=== PATIENT | male | born 1965 | race Caucasian/White ===

== ENCOUNTER 2017-06-21 16:26 | Inpatient (IN) | payer OTHER ==
[2017-06-21] MEDS ORDERED: Ketorolac INJ* 30 MG/ML 1 ML VIAL IV PUSH ONE (18:35)
[2017-06-21] MEDS ORDERED: NS 0.9% 1000 ML* 1,000 ML IV ONE (18:35)
--- NOTE | 2017-06-21 18:42 | ED ---
Abdominal Pain/Male - HPI Summary HPI Summary: 51M presents with lower abdominal pain since Sat. He was lifting things on Saturday. He denies any pain like this in the past. He denies any history of GI infections. He denies any n/v/d/c. He denies any hematuria, flank pain, dysuria, or fever. He has had his appendix removed. He states that pain is worst with movement. He states that he has no pain at rest. Ibuprofen helped the pain. Pain is greatest on the middle and radiates to side of lower abdomen. pain is sharp in nature. Pain is worst with bowel movement as causes increased pressure so pain increases. Seen by primary who was concerned for diverticulitis. - History of Current Complaint Chief Complaint: EDAbdOlafin Stated Complaint: LOWER ABD PAIN Time Seen by Provider: 06/21/17 18:24 Pain Intensity: 7 - Allergies/Home Medications Allergies/Adverse Reactions: Allergies Allergy/AdvReac Type Severity Reaction Status Date / Time No Known Allergies Allergy Verified 06/21/17 22:39 PMH/Surg Hx/FS Hx/Imm Hx Endocrine/Hematology History: Denies: Hx Diabetes, Hx Thyroid Disease Cardiovascular History: Denies: Hx Hypertension Respiratory History: Denies: Hx Asthma, Hx Chronic Obstructive Pulmonary Disease (COPD) GI History: Denies: Hx Ulcer Psychiatric History: Reports: Hx Depression - Surgical History Surgery Procedure, Year, and Place: appy Infectious Disease History: No Infectious Disease History: Denies: Hx Hepatitis, Hx Human Immunodeficiency Virus (HIV), Traveled Outside the in Last 30 Days - Family History Known Family History: Positive: Other - no GI - Social History Alcohol Use: Occasionally Substance Use Type: Reports: None Smoking Status (MU): Never Smoked Tobacco Review of Systems Negative: Fever Negative: Chest Pain Negative: Shortness Of Breath Positive: Abdominal Pain. Negative: Vomiting, Diarrhea, Nausea All Other Systems Reviewed And Are Negative: Yes Physical Exam Triage Information Reviewed: Yes Vital Signs On Initial Exam: Initial Vitals Temp Pulse Resp BP Pulse Ox 98.3 F 78 20 141/84 98 06/21/17 16:43 06/21/17 16:43 06/21/17 16:43 06/21/17 16:43 06/21/17 16:43 Vital Signs Reviewed: Yes Appearance: Positive: Well-Appearing Skin: Positive: Warm, Dry Head/Face: Positive: Normal Head/Face Inspection Eyes: Positive: Normal, EOMI, SHIV, Conjunctiva Clear ENT: Positive: Normal ENT inspection, Pharynx normal, TMs normal Respiratory/Lung Sounds: Positive: Clear to Auscultation, Breath Sounds Present Cardiovascular: Positive: Normal, RRR Abdomen Description: Positive: Soft, Other: - tenderness across LLQ and RLQ, no rebound Bowel Sounds: Positive: Present - Graham Coma Scale Coma Scale Total: 15 Diagnostics - Vital Signs Vital Signs Temp Pulse Resp BP Pulse Ox 06/21/17 18:30 72 98 06/21/17 18:27 98.8 F 58 16 126/80 94 06/21/17 18:26 126/80 06/21/17 16:43 98.3 F 78 20 141/84 98 - Laboratory Result Diagrams: 06/21/17 18:44 06/21/17 18:44 Lab Statement: Any lab studies that have been ordered have been reviewed, and results considered in the medical decision making process. - CT abd CT Interpretation: Positive (See Comments) - IMPRESSION: DIVERTICULITIS OF THE SIGMOID COLON JUST POSTERIOR TO THE URINARY BLADDER WITH A SMALL 12 MM PERIDIVERTICULAR ABSCESS. NO HERNIAS ARE NOTED. CT Interpretation Completed By: Radiologist Abdominal Pain Fem Course/Dx - Course Course Of Treatment: 51M presents with lower abdominal pain since Sat. He was lifting things on Saturday. He denies any pain like this in the past. He denies any history of GI infections. He denies any n/v/d/c. He denies any hematuria, flank pain, dysuria, or fever. He has had his appendix removed. He states that pain is worst with movement. He states that he has no pain at rest. Ibuprofen helped the pain. Pain is greatest on the middle and radiates to side of lower abdomen. pain is sharp in nature. on exam has tenderness greatest in LLQ so will get CT. labs wbc normal. CT shows diverticulitis with tiny abscess. spoke with dr brian time motion analyst for GI recommends admission. Dr Bowie agrees to admit. - Diagnoses Differential Diagnosis/HQI/PQRI: Diverticulitis, Urinary Tract Infection, Other - muscular Provider Diagnoses: Diverticulitis - Provider Notifications Discussed Care Of Patient With: dr Cali Time Discussed With Above Provider: 21:55 - patient should be admitted Discharge - Discharge Plan Condition: Stable Disposition: ADMITTED TO [facility]
[2017-06-21 18:54] LABS: Hematocrit 43 % (42-52); Hemoglobin 14.5 g/dl (14.0-18.0); Mean Corpuscular HGB Conc 34 g/dl (31-36); Mean Corpuscular Hemoglobin 29 pg (27-31); Mean Corpuscular Volume 86 fL (80-94); Mean Platelet Volume 6 um3 (7.4-10.4); Red Blood Count 4.97 10^6/ul (4.0-5.4); Red Cell Distribution Width 14 % (10.5-15); White Blood Count 10.4 10^3/ul (3.5-10.8)
[2017-06-21 19:20] LABS: ALT 93 U/L (7-52); AST 56 U/L (13-39); Alkaline Phosphatase 114 U/L (34-104); Anion Gap 8 mmol/L (2-11); BUN/Creatinine Ratio 7.8 (8-20); Blood Urea Nitrogen 9 mg/dL (6-24); CO2 Carbon Dioxide 28 mmol/L (22-32); Calcium 9.6 mg/dL (8.6-10.3); Chloride 101 mmol/L (101-111); EGFR African American 85.6 (>60); EGFR Non-African American 66.5 (>60); Globulin 3.4 g/dL (2-4); Glucose 96 mg/dL (70-100); Lipase < 10 U/L (11.0-82.0); Potassium 4.4 mmol/L (3.5-5.0); Sodium 137 mmol/L (133-145); Total Protein 7.4 g/dL (6.4-8.9)
[2017-06-21] MEDS ORDERED: Iohexol 300* (CONTRAST) 10 ML SDV IV ONE (19:29)
--- NOTE | 2017-06-21 21:10 | RAD ---
Indication: Left lower quadrant pain. Contrast: Administered 100.2 ml of OMNIPAQUE 300 mg/ml CT of the abdomen and pelvis was performed after oral and IV contrast administration. Coronal and sagittal reconstructed images were obtained. The lung bases demonstrate no pleural fluid, nodules or masses. Heart demonstrates no pericardial effusion. Liver demonstrates no focal lesions or intrahepatic ductal dilatation. The liver is normal in size. The gallbladder demonstrates no calcified gallstones. No pericholecystic fluid or wall thickening is noted. The spleen is normal size. The pancreas demonstrates no mass or pancreatic duct dilatation. Common duct is not dilated. No adrenal lesions are noted. The kidneys demonstrate symmetric nephrograms. No hydronephrosis is noted. No dilated loops of bowel are noted. CT of the pelvis demonstrates urinary bladder to be unremarkable. There is diverticulitis of the sigmoid colon posterior to the urinary bladder. There may be a tiny peridiverticular abscess is noted measuring up to 12 mm. The prostate is otherwise unremarkable. No hernias are noted. Bony structures are unremarkable. IMPRESSION: DIVERTICULITIS OF THE SIGMOID COLON JUST POSTERIOR TO THE URINARY BLADDER WITH A SMALL 12 MM PERIDIVERTICULAR ABSCESS. NO HERNIAS ARE NOTED.
[2017-06-21] MEDS ORDERED: Ciprofloxacin 400MG IVPREMIX(* 400 MG/200 ML BAG IVPB ONE (21:57)
[2017-06-21] MEDS ORDERED: metroNIDAZOLE IV 500 MG/100ML* 500 MG/100 ML BAG IVPB ONE (21:57)
[2017-06-21 22:20] LABS: Urine Bilirubin Negative (Negative); Urine Glucose Negative (Negative); Urine Nitrite Negative (Negative)
[2017-06-21] MEDS ORDERED: Morphine INJ* 2 MG/ML 1 ML SYRINGE IV PRN (23:20)
[2017-06-21] MEDS ORDERED: Ondansetron INJ* 2 MG/ML VIAL IV PRN (23:21)
[2017-06-22] MEDS: Acetaminophen TAB* 325 MG PO PRN ×2 (00:16→14:05)
[2017-06-22] MEDS: NS 0.9% 1000 ML* 1,000 ML IV SCH ×2 (01:50→14:47)
[2017-06-22] MEDS: metroNIDAZOLE IV 500 MG/100ML* 500 MG/100 ML BAG IVPB SCH ×2 (08:06→16:30)
[2017-06-22] MEDS ORDERED: buPROPion SR TAB.SR* 150 MG PO SCH (09:00)
[2017-06-22] MEDS ORDERED: buPROPion SR TAB.SR* 100 MG PO SCH ×2 (09:00→21:00)
[2017-06-22] MEDS: buPROPion SR TAB.SR* 150 MG PO SCH (09:23)
[2017-06-22] MEDS: Ciprofloxacin 400MG IVPREMIX(* 400 MG/200 ML BAG IVPB SCH ×2 (10:46→22:50)
--- NOTE | 2017-06-22 12:17 | HP ---
CC: Dr. Jolley. HISTORY AND PHYSICAL: DATE OF ADMISSION: 06/21/17 CHIEF COMPLAINT: Abdominal pain. HISTORY OF PRESENT ILLNESS: Mr. Mcclure is a 51-year-old man with history of depression who reports 2-days of [id number] abdominal pain in the suprapubic region. The pain was nearly constant and not colicky. It is not associated with diarrhea, but he did have decreased bowel outputs. So, he took a stool softener which caused some loose stools. He has not had any fevers. He has had continued appetite and has been eating without any nausea or vomiting. He denies any history of diverticulitis or recurrent abdominal pain. On review of hospital chart it shows that he was admitted to this hospital with depression in 2011. Otherwise, no significant hospital stays. PAST MEDICAL HISTORY: Includes depression and seasonal allergies. PAST SURGICAL HISTORY: Appendectomy in the past. MEDICATIONS ON ADMISSION: 1. Wellbutrin SR 150 mg p.o. q.a.m. 2. Wellbutrin SR 100 mg p.o. q.p.m. 3. Singulair 5 mg p.o. daily. ALLERGIES: None. 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 He is . He has 4 children. He never smoked tobacco. He drinks alcohol about 3 to 4 drinks a few times a week. No recreational drugs. FAMILY HISTORY: Notable for mother and father who are alive with hypertension. No heart disease, diabetes or cancer in the family or in the immediate family. REVIEW OF SYSTEMS: Patient denies any fever, weight loss, anorexia. Patient denies any chest pain or palpitations. Patient denies any cough, hemoptysis or shortness of breath. Patient denies any nausea or vomiting. He does have abdominal pain and loose stools as above. Denies any dysuria, frequency. The remainder of the 14-point review of systems is negative. PHYSICAL EXAMINATION GENERAL: He is alert, in no acute distress. VITAL SIGNS: Temperature is 97.1, pulse 72, respirations 16, blood pressure 126 /80, oxygen saturation is 98%. HEENT: Head is normocephalic, atraumatic. Sclerae anicteric. Pupils equal, round, and reactive to light and accommodation. Oropharynx is moist. No lesions. NECK: No JVD. No carotid bruit. No thyromegaly LUNGS: Clear to auscultation and percussion bilaterally. HEART: Regular rate and rhythm, without murmurs or gallops. ABDOMEN: Soft, tender in the suprapubic and right lower quadrant area. No masses are palpated. RECTAL EXAM: Declined by the patient. He had a rectal exam earlier today in the primary care office. SKIN: No rashes. EXTREMITIES: No peripheral edema. Dorsalis pedis pulses are 1+ bilaterally. NEUROLOGIC: Cranial nerves II through XII are intact. Motor strength is 5/5 throughout. Deep tendon reflexes are symmetric. LABORATORY DATA: Sodium 137, potassium 4.4, chloride 101, bicarb 28, BUN 8, creatinine 1.15, glucose 96, calcium 9.6, lipase less than 10. His CRP is 276, albumin 4.0, AST 56, ALT 93, bilirubin 0.8, alkaline phosphatase 114, white count 10.4, hemoglobin 14.5, hematocrit 43%, platelets 303. Urinalysis shows 1 + ketones. CT abdomen and pelvis shows a 1.2 cm diverticular abscess posterior to the bladder as well as diverticulitis. ASSESSMENT AND PLAN: A 51-year-old man with worst case of diverticulitis complicated by small abscess. This abscess is small that it may resolve with IV antibiotics, but many abscesses require drainage by Interventional Radiology to achieve cure. The patient will be observed on IV antibiotics and we will discuss the case with IR in the morning. If not admitted to observation, he will be given intravenous Cipro and Flagyl. I also will give him bowel rest with ice chips and intravenous fluids to prevent dehydration. For the depression, he can continue his Wellbutrin as above. Code status, he is full code. DVT prophylaxis will be with early ambulation, he is at low risk. [id number]/[facility] #: [id number] [facility]
--- NOTE | 2017-06-22 18:04 | PN ---
Subjective Date of Service: 06/22/17 Interval History: Patient seen and examined at bedside. Denies fever, chills, shortness of breath , chest discomfort, N/V/D. Pt states that he has a BM earlier today. Pt would like to try and advance his diet. Tele: Sinus rhythm, rate 50-60's. Family History: Unchanged from Admission Social History: Unchanged from Admission Past Medical History: Unchanged from Admission Objective Active Medications: Acetaminophen (Tylenol Tab*) 650 mg PO Q6H PRN Reason: FEVER/PAIN Bupropion HCl (Wellbutrin Sr Tab*) 100 mg PO BEDTIME CATHERINE Bupropion HCl (Wellbutrin Sr Tab*) 150 mg PO DAILY CATHERINE Ciprofloxacin/Dextrose (Cipro 400 Mg Ivpremix(*)) 400 mg in 200 mls @ 200 mls/ hr IVPB Q12H CATHERINE Metronidazole/Sodium Chloride (Flagyl 500 Mg Ivpb*) 500 mg in 100 mls @ 100 mls /hr IVPB Q8H CATHERINE Sodium Chloride (Ns 0.9% 1000 Ml*) 1,000 mls @ 125 mls/hr IV PER RATE CATHERINE Morphine Sulfate (Morphine Inj (Syringe)*) 2 mg IV Q2H PRN Reason: PAIN Ondansetron HCl (Zofran Inj*) 4 mg IV Q6H PRN Reason: NAUSEA Vital Signs 06/21/17 06/21/17 06/21/17 22:30 23:00 23:30 Temperature Pulse Rate 65 64 63 Respiratory Rate Blood Pressure 111/67 118/70 111/65 (mmHg) O2 Sat by Pulse 97 96 95 Oximetry 06/22/17 06/22/17 06/22/17 00:00 00:01 00:20 Temperature 98.4 F Pulse Rate 63 64 64 Respiratory 16 Rate Blood Pressure 110/72 110/72 (mmHg) O2 Sat by Pulse 96 95 96 Oximetry 06/22/17 06/22/17 06/22/17 01:27 04:49 07:23 Temperature 97.7 F 97.3 F 97.4 F Pulse Rate 61 53 57 Respiratory 16 18 18 Rate Blood Pressure 103/52 97/64 103/69 (mmHg) O2 Sat by Pulse 98 99 99 Oximetry 06/22/17 06/22/17 06/22/17 08:10 11:09 15:57 Temperature 98.1 F Pulse Rate 63 54 Respiratory 18 18 16 Rate Blood Pressure 127/83 127/83 (mmHg) O2 Sat by Pulse 100 99 Oximetry Oxygen Devices in Use Now: None Appearance: NAD, laying in bed Ears/Nose/Mouth/Throat: Mucous Membranes Moist Respiratory: Symmetrical Chest Expansion and Respiratory Effort, Clear to Auscultation Cardiovascular: NL Sounds; No Murmurs; No JVD, RRR Abdominal: - - Bowel sounds present, tender in the lower ABD Extremities: No Edema Skin: No Rash or Ulcers Neurological: Alert and Oriented x 3, NL Muscle Strength and Tone Lines/Tubes/Other Access: Clean, Dry and Intact Peripheral IV - site benign Nutrition: Taking PO's Result Diagrams: 06/21/17 18:44 06/21/17 18:44 Assess/Plan/Problems-Billing Assessment: Mr. Mcclure is a 51 yo male with PMH significant for depression who presented to the emergency room with complaints of lower abdominal pain and wsa found to have diverticulitis complicated by a small abscess. - Patient Problems (1) Diverticulitis Comment: - With small abscess - Afebrile and no leukocytosis - Continue IV flagyl and cipro - Will need followup CT of ABD/pelvis in the future (2) Depression Code(s): F32.9 - MAJOR DEPRESSIVE DISORDER, SINGLE EPISODE, UNSPECIFIED SNOMED Code(s): 88279188 Comment: - Continue wellbutrin (3) DVT prophylaxis Code(s): NWY3057 - SNOMED Code(s): 471155003 Comment: - Encourage ambulation (4) Full code status Code(s): Z78.9 - OTHER SPECIFIED HEALTH STATUS SNOMED Code(s): 365740437 Status and Disposition: OBV to Inpatient. Plan to discharge to home when medically stable, possible in the AM.
[2017-06-23] MEDS: metroNIDAZOLE IV 500 MG/100ML* 500 MG/100 ML BAG IVPB SCH ×2 (00:24→08:37)
[2017-06-23] MEDS: Acetaminophen TAB* 325 MG PO PRN (00:31)
[2017-06-23] MEDS: NS 0.9% 1000 ML* 1,000 ML IV SCH (03:06)
[2017-06-23 05:34] LABS: Hematocrit 37 % (42-52); Hemoglobin 12.6 g/dl (14.0-18.0); Mean Corpuscular HGB Conc 34 g/dl (31-36); Mean Corpuscular Hemoglobin 29 pg (27-31); Mean Corpuscular Volume 86 fL (80-94); Mean Platelet Volume 6 um3 (7.4-10.4); Red Blood Count 4.31 10^6/ul (4.0-5.4); Red Cell Distribution Width 14 % (10.5-15); White Blood Count 5.4 10^3/ul (3.5-10.8)
[2017-06-23] MEDS: buPROPion SR TAB.SR* 150 MG PO SCH (08:40)
[2017-06-23 09:34] VITALS: BP 139/79
[2017-06-23] MEDS: Ciprofloxacin 400MG IVPREMIX(* 400 MG/200 ML BAG IVPB SCH (11:26)
--- NOTE | 2017-06-23 11:39 | PN ---
Subjective Date of Service: 06/23/17 Interval History: Patient seen and examined at bedside. Pt states that he is feeling better. Denies fever, chills, shortness of breath, chest discomfort, N/V/D. Pt states that his abdominal pain is much better today. He is tolerating a full liquids diet. Family History: Unchanged from Admission Social History: Unchanged from Admission Past Medical History: Unchanged from Admission Objective Active Medications: Acetaminophen (Tylenol Tab*) 650 mg PO Q6H PRN Reason: FEVER/PAIN Bupropion HCl (Wellbutrin Sr Tab*) 100 mg PO BEDTIME CATHERINE Bupropion HCl (Wellbutrin Sr Tab*) 150 mg PO DAILY CATHERINE Ciprofloxacin/Dextrose (Cipro 400 Mg Ivpremix(*)) 400 mg in 200 mls @ 200 mls/ hr IVPB Q12H CATHERINE Metronidazole/Sodium Chloride (Flagyl 500 Mg Ivpb*) 500 mg in 100 mls @ 100 mls /hr IVPB Q8H CATHERINE Sodium Chloride (Ns 0.9% 1000 Ml*) 1,000 mls @ 125 mls/hr IV PER RATE CATHERINE Morphine Sulfate (Morphine Inj (Syringe)*) 2 mg IV Q2H PRN Reason: PAIN Ondansetron HCl (Zofran Inj*) 4 mg IV Q6H PRN Reason: NAUSEA Vital Signs 06/22/17 06/22/17 06/22/17 20:00 20:23 23:43 Temperature 97.5 F 97.6 F Pulse Rate 51 54 Respiratory 16 16 20 Rate Blood Pressure 127/75 116/71 (mmHg) O2 Sat by Pulse 99 98 Oximetry 06/23/17 06/23/17 06/23/17 03:11 07:14 08:00 Temperature 97.5 F 97.7 F Pulse Rate 55 60 Respiratory 20 18 16 Rate Blood Pressure 114/72 139/79 (mmHg) O2 Sat by Pulse 96 98 Oximetry Oxygen Devices in Use Now: None Appearance: NAD, laying in bed Ears/Nose/Mouth/Throat: Mucous Membranes Moist Respiratory: Symmetrical Chest Expansion and Respiratory Effort, Clear to Auscultation Cardiovascular: NL Sounds; No Murmurs; No JVD, RRR Abdominal: NL Sounds; No Tenderness; No Distention Extremities: No Edema Skin: No Rash or Ulcers Neurological: Alert and Oriented x 3, NL Muscle Strength and Tone Lines/Tubes/Other Access: Clean, Dry and Intact Peripheral IV - site benign Nutrition: Taking PO's Result Diagrams: 06/23/17 04:54 06/21/17 18:44 Assess/Plan/Problems-Billing Assessment: Mr. Mcclure is a 51 yo male with PMH significant for depression who presented to the emergency room with complaints of lower abdominal pain and was found to have diverticulitis complicated by a small abscess. - Patient Problems (1) Diverticulitis Comment: - With small abscess - Afebrile and no leukocytosis - Continue flagyl and cipro - Will need followup CT of ABD/pelvis in the future (2) Depression Code(s): F32.9 - MAJOR DEPRESSIVE DISORDER, SINGLE EPISODE, UNSPECIFIED SNOMED Code(s): 59779912 Comment: - Continue wellbutrin (3) DVT prophylaxis Code(s): [id number] - SNOMED Code(s): 640014871 Comment: - Encourage ambulation (4) Full code status Code(s): Z78.9 - OTHER SPECIFIED HEALTH STATUS SNOMED Code(s): 015654862 Status and Disposition: Inpatient. Plan to discharge to home when medically stable, plan for later today if able to tolerate a low fiber diet.
--- NOTE | 2017-06-24 02:21 | DS ---
CC: Dr. Myrna Jolley * DISCHARGE SUMMARY: DATE OF ADMISSION: 06/21/17 DATE OF DISCHARGE: 06/23/17 ATTENDING PHYSICIAN: Maynor Conway MD * (dictated by Shelly Little NP). PRIMARY CARE PROVIDER: Dr. Myrna Jolley. PRIMARY DIAGNOSIS: Diverticulitis with a small abscess. SECONDARY DIAGNOSIS: Depression. STUDIES WHILE IN THE HOSPITAL: Abdominopelvic CT on 06/21/17. Radiologist impression a diverticulitis of the sigmoid colon just posterior to the urinary bladder with a small 12 mm peridiverticular abscess. No hernias are noted. DISCHARGE MEDICATIONS: New home medications: 1. Cipro 500 mg oral twice daily for 9 days. 2. Flagyl 500 mg oral 3 times daily for 9 days. 3. Acetaminophen 650 mg oral every 6 hours as needed for fever or pain. Continued home medications: 1. Wellbutrin 150 mg oral every morning. 2. Wellbutrin 100 mg oral daily at bedtime. 3. Singulair 5 mg oral daily. HISTORY OF PRESENT ILLNESS/HOSPITAL COURSE: Mr. Mcclure is a 51-year-old male with no significant past medical history, who presents to the emergency room with complaints of 2 days of abdominal pain in the suprapubic region that was nearly constant. He had no associated diarrhea, but had noticed a decrease in bowel movement. He took a stool softener, which then caused him loose stools. He denied any fever. The patient had continued to have his appetite and was eating without difficulty. The patient presented to the emergency room for further evaluation of his symptoms. While in the emergency room, the patient had labs that were unremarkable. He had an abdomen and pelvis CT showing a 1.2 cm diverticular abscess posterior to the bladder as well as diverticulitis. The hospitalists were asked to evaluate the patient for admission. While in the hospital, the patient received IV Cipro and Flagyl. He initially was started on a clear liquid diet and was able to advance his diet to a low- fiber diet. His abdominal pain improved. He continued to have no nausea and vomiting and was feeling well. He remained afebrile and had no leukocytosis. The patient was stable for discharge to home today. Mr. Mcclure is stable for discharge to home today. Vital signs are as follows ; temperature 97.7, heart rate 60, respiratory rate 18, O2 sat 98% on room air, and blood pressure 139/79. DISCHARGE PLAN: Mr. Mcclure will be discharged to home. Activity as tolerated. He has been instructed to eat a low-fiber diet. As far as the patient's diverticulitis, he will be continued on Cipro 500 mg twice daily for 9 more days in addition to Flagyl 500 mg oral 3 times daily for 9 more days. The patient was asked to call his primary care provider's office on Saturday to set up a followup appointment with Dr. Jolley in the next week. The patient should have a followup CT scan in the next few weeks to evaluate if the abscess has resolved. The patient has been asked to return to the emergency room for any complaints of chest pain, shortness of breath, or return of his abdominal pain. This is a summarized report of complex medical history and hospital stay. For further details, please see the entire medical record. TIME SPENT: Time for this discharge was approximately 50 minutes. Greater than half the time was spent with the patient discussing discharge plans and instructions. CONDITION ON DISCHARGE: Stable. SHELLY COWAN NP [id number]/[facility] #: [id number] LUISA
== END 2017-06-23 15:20 | disposition home or self-care (01) | DRG 392 ==
LOC: ED 16:26 → MEDTELE 22:29 → OBSVTOIN 06-22 18:25
PROVIDERS: ADMIT Internal Medicine; ATTEND Hospitalist
DX: K57.20 Diverticulitis of large intestine with perforation and abscess without bleeding (principal); F32.9 Major depressive disorder, single episode, unspecified; Z72.89 Other problems related to lifestyle; Z82.49 Family history of ischemic heart disease and other diseases of the circulatory system
CPT/HCPCS: 36415; 74177; 80053; 81003; 83690; 85025; 86141; A9270-GY; G0378; J0744; J1885; Q9967

== ENCOUNTER 2018-07-20 16:47 | Emergency (ER) | payer OTHER ==
[2018-07-20 17:00] VITALS: BP 149/69
--- NOTE | 2018-07-20 17:11 | UC ---
Abdominal Pain Male HPI - HPI Summary HPI Summary: 52 yo patient who states he has been having generalized abdominal pain for past 3 days, along with low grade fever. He states his intake of fluids is good and he has been able to hydrate himself aggressively. He started to have diarrhea for the past day and denies mucus or blood/melena in it. Two years ago he had an episode of diverticulitis with similar symptoms, states that colonoscopy afterwards has been normal. - History of Current Complaint Chief Complaint: UCAbdominalPain Stated Complaint: ABD DISCOMFORT Time Seen by Provider: 07/20/18 17:01 Hx Obtained From: Patient Onset/Duration: Gradual Onset, Lasting Days Timing: Constant Severity Initially: Mild Severity Currently: Moderate Pain Intensity: 4 Location: Diffuse Radiates: No Character: Cramping Associated Signs And Symptoms: Positive: Fever, Diarrhea - Risk Factors Testicular Torsion: Negative Cardiac Risk Factors: Negative - Allergies/Home Medications Allergies/Adverse Reactions: Allergies Allergy/AdvReac Type Severity Reaction Status Date / Time No Known Allergies Allergy Verified 07/20/18 17:01 PMH/Surg Hx/FS Hx/Imm Hx - Additional Past Medical History Additional PMH: allergic rhinitis Psychological History: Depression - Surgical History Surgical History: Yes Surgery Procedure, Year, and Place: appendectomy 2011 - Family History Known Family History: Positive: Hypertension, Other - no GI - Social History Alcohol Use: Weekly Alcohol Amount: 2 drinks per week Substance Use Type: None Smoking Status (MU): Never Smoked Tobacco - Immunization History Most Recent Influenza Vaccination: never had Most Recent Pneumonia Vaccination: never had Review of Systems Constitutional: Fever, Fatigue Gastrointestinal: Abdominal Pain, Diarrhea All Other Systems Reviewed And Are Negative: Yes Physical Exam Triage Information Reviewed: Yes Vital Signs: Initial Vital Signs Temp 99.2 F 07/20/18 16:54 Pulse 88 07/20/18 16:54 Resp 16 07/20/18 16:54 BP 149/69 07/20/18 16:54 Pulse Ox 98 07/20/18 16:54 Vital Signs Reviewed: Yes Eyes: Positive: Conjunctiva Clear ENT: Positive: Hearing grossly normal, Pharynx normal Neck: Positive: Supple, Nontender Respiratory: Positive: Chest non-tender, Lungs clear, Normal breath sounds, No respiratory distress Cardiovascular: Positive: RRR, No Murmur, Pulses Normal, Brisk Capillary Refill Abdomen Description: Positive: Nontender, No Organomegaly, Soft, Other: - no rebound, no peritoneal signs Bowel Sounds: Positive: Present Musculoskeletal: Positive: Strength Intact, ROM Intact, No Edema Neurological: Positive: Alert, Muscle Tone Normal Abd Pain Male Course/Dx - Course Course Of Treatment: Patient with diffuse abdominal pain who on physical exam does not have rebound or tenderness. Prior history of diverticulitis, will start treatment with cipro and flagyl, and follow up withing a week with his manager rfid. Instructed to go to the ER if symptoms worsen, if he becomes nauseous or if fever does not subside in 24 hr. - Differential Dx/Clinical Impression Provider Diagnoses: abdominal pain. Elevated BP without a history of HTN Discharge - Sign-Out/Discharge Documenting (check all that apply): Patient Departure All imaging exams completed and their final reports reviewed: No Studies - Discharge Plan Condition: Stable Disposition: HOME Patient Education Materials: Diverticulitis (ED), Metronidazole (By mouth), Ciprofloxacin (By mouth) Referrals: Myrna Jolley MD [Primary Care Provider] - Additional Instructions: Please follow up withing a week with his manager rfid. Please go to the ER if symptoms worsen, if he becomes nauseous or if fever does not subside in 24 hr. - Billing Disposition and Condition Condition: STABLE Disposition: Home
[2018-07-20] MEDS ORDERED: Ciprofloxacin TAB* 500 MG PO ONE ×2 (17:18→17:32)
[2018-07-20] MEDS ORDERED: metroNIDAZOLE TAB* 250 MG PO ONE ×2 (17:19→17:32)
[2018-07-21 10:34] LABS: ABS Basophils 0.1 10^3/ul (0-0.2); ABS Eosinophils 0 10^3/ul (0-0.6); ABS Lymphocytes 1.1 10^3/ul (1.0-4.8); ABS Monocytes 0.8 10^3/ul (0-0.8); ABS Neutrophils 10.7 10^3/ul (1.5-7.7); ABS Nucleated RBC 0 10^3/ul; Eosinophil % 0.3 % (0-6); Hematocrit 43 % (42-52); Hemoglobin 14.4 g/dl (14.0-18.0); Lymphocyte % 8.8 % (25-47); Mean Corpuscular HGB Conc 33 g/dl (31-36); Mean Corpuscular Hemoglobin 29 pg (27-31); Mean Corpuscular Volume 86 fL (80-94); Mean Platelet Volume 6.9 um3 (7.4-10.4); Nucleated Red Blood Cells % 0.2; Platelet Count 320 10^3/ul (150-450); Red Cell Distribution Width 15 % (10.5-15); White Blood Count 12.8 10^3/ul (3.5-10.8)
[2018-07-21 10:57] LABS: EGFR Non-African American 99.3 (>60)
--- NOTE | 2018-07-21 13:36 | UC ---
- Progress Note Progress Note: LAB RESULTS SHOW ELEVATE WBC COUNT AND LFTS PATIENT BEING TREATED FOR DIVERTICULITIS. NURSING TO CALL PATIENT, INFORM HIM OF LAB RESULTS AND DETERMINE HOW HE FEELS. IF COMPLETELY IMPROVED, THEN MAKE SURE PATIENT HAS PMD FOLLOW UP. IF NOT IMPROVED THEN, GO TO THE EMERGENCY DEPARTMENT. 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 Please go to the ER if symptoms worsen, if he becomes nauseous or if fever does not subside in 24 hr. - Billing Disposition and Condition Condition: STABLE Disposition: Home
== END 2018-07-20 18:14 | disposition home or self-care (01) ==
LOC: UCEAST 16:47
DX: R10.84 Generalized abdominal pain (principal); R50.9 Fever, unspecified; R19.7 Diarrhea, unspecified; R53.83 Other fatigue; R03.0 Elevated blood-pressure reading, without diagnosis of hypertension; Z90.89 Acquired absence of other organs
CPT/HCPCS: 36415; 80053; 81003; 85025; 99213; A9270-GY; G0463

== ENCOUNTER 2018-07-24 14:32 | Emergency (ER) | payer OTHER ==
--- NOTE | 2018-07-24 16:45 | ED ---
Abdominal Pain/Male - HPI Summary HPI Summary: This patient is a 52 year old M presenting to [facility] accompanied by his with a chief complaint of waxing and waning ABD pain that began on 07-20-18. He was seen at the and given ABX, since he has had no change in the ABD pain. The patient rates the pain 4/10 in severity. Symptoms aggravated by exertion. Patient denies fever, diaphoresis, chills, diarrhea, blood in the stool, and decreased appetite. He has not eaten solid food since Saturday. He states he did have a fever and chills that resolved with the abx. On Cipro and Falgyl. Hx diverticulitis and states the pain feels similar. - History of Current Complaint Chief Complaint: EDAbdPain Stated Complaint: ABD PAIN Time Seen by Provider: 07/24/18 16:36 Hx Obtained From: Patient Onset/Duration: Lasting Days, Still Present Timing: Constant - waxing and waning Severity Initially: Mild Severity Currently: Mild Pain Intensity: 4 Pain Scale Used: 0-10 Numeric Location: Suprapubic Radiates: No Aggravating Factor(s): Other: - exertion Associated Signs And Symptoms: Positive: Negative - fever, chills,. Negative: Blood in Stool, Vomiting, Diarrhea - Allergies/Home Medications Allergies/Adverse Reactions: Allergies Allergy/AdvReac Type Severity Reaction Status Date / Time No Known Allergies Allergy Verified 07/24/18 14:40 PMH/Surg Hx/FS Hx/Imm Hx Endocrine/Hematology History: Denies: Hx Diabetes, Hx Thyroid Disease Cardiovascular History: Denies: Hx Hypertension Respiratory History: Reports: Hx Seasonal Allergies Denies: Hx Asthma, Hx Chronic Obstructive Pulmonary Disease (COPD) GI History: Reports: Hx Diverticulosis Denies: Hx Ulcer Sensory History: Reports: Hx Contacts or Glasses - glasses and contacts Denies: Hx Hearing Aid Opthamlomology History: Reports: Hx Contacts or Glasses - glasses and contacts Psychiatric History: Reports: Hx Depression - Surgical History Surgery Procedure, Year, and Place: appendectomy 2011 Infectious Disease History: No Infectious Disease History: Denies: Hx Hepatitis, Hx Human Immunodeficiency Virus (HIV), Traveled Outside the [place] in Last 30 Days - Family History Known Family History: Positive: Hypertension, Other - no GI - Social History Lives: With Family Alcohol Use: Weekly Alcohol Amount: 2 drinks per week Substance Use Type: Reports: None Smoking Status (MU): Never Smoked Tobacco Review of Systems Negative: Fever, Skin Diaphoresis Negative: Erythema Negative: Sore Throat Negative: Chest Pain Negative: Shortness Of Breath, Cough Positive: Abdominal Pain. Negative: Vomiting, Diarrhea, Nausea Negative: dysuria, hematuria Negative: Myalgia, Edema Negative: Rash Neurological: Negative - dizziness All Other Systems Reviewed And Are Negative: Yes Physical Exam - Summary Physical Exam Summary: Constitutional: Well-developed, Well-nourished, Alert. (-) Distressed Skin: Warm, Dry HENT: Normocephalic; Atraumatic Eyes: Conjunctiva normal Neck: Musculoskeletal ROM normal neck. (-) JVD, (-) Stridor, (-) Tracheal deviation Cardio: Rhythm regular, rate normal, Heart sounds normal; Intact distal pulses; The pedal pulses are 2+ and symmetric. Radial pulses are 2+ and symmetric. (-) Murmur Pulmonary/Chest wall: Effort normal. (-) Respiratory distress, (-) Wheezes, (-) Rales Abd: Soft, mildly TTP in the LLQ Musculoskeletal: (-) Edema Lymph: (-) Cervical adenopathy Neuro: Alert, Oriented x3 Psych: Mood and affect Normal Triage Information Reviewed: Yes Vital Signs On Initial Exam: Initial Vitals Temp Pulse Resp BP Pulse Ox 97.9 F 56 16 156/88 96 07/24/18 14:37 07/24/18 14:37 07/24/18 14:37 07/24/18 14:37 07/24/18 14:37 Vital Signs Reviewed: Yes Diagnostics - Vital Signs Vital Signs Temp Pulse Resp BP Pulse Ox 07/24/18 14:37 97.9 F 56 16 156/88 96 - Laboratory Result Diagrams: 07/24/18 16:42 07/24/18 16:42 Lab Statement: Any lab studies that have been ordered have been reviewed, and results considered in the medical decision making process. - CT CT ABD pelvis CT Interpretation Completed By: Radiologist - 1. Diverticulosis without diverticulitis or colitis. 2. No other acute disease seen. As above. ED physician has reviewed this radiology report. Re-Evaluation - Re-Evaluation First Eval Re-Evaluation Time: 21:00 Change: Improved - ABD SOFT NONTENDER Second Eval Re-Evaluation Time: 22:30 Change: Improved - ABD SOFT NONTENDER NO PAIN Abdominal Pain Fem Course/Dx - Course Assessment/Plan: This patient is a 52 year old M presenting to [facility] accompanied by his with a chief complaint of waxing and waning ABD pain that began on 07-20-18. He was seen at the and given ABX, since he has had no change in the ABD pain. The patient rates the pain 4/10 in severity. Symptoms aggravated by exertion. Patient denies fever, diaphoresis, chills, diarrhea, blood in the stool, and decreased appetite. He has not eaten solid food since Saturday. He states he did have a fever and chills that resolved with the abx. On Cipro and Falgyl. Hx diverticulitis and states the pain feels similar. CT ABD/Pelvis reveals, per radiologist, 1. Diverticulosis without diverticulitis or colitis. 2. No other acute disease seen. As above. Gallbladder ultrasound : gallbladder polyp. In the ED, the patient has tolerated PO. His abd pain is crampy. Negative workup. Followup PCP or [facility] within 48-72 hours. - Diagnoses Provider Diagnoses: Abdominal pain, Gallbladder polyp Discharge - Sign-Out/Discharge Documenting (check all that apply): Patient Departure - Discharge Plan Condition: Good Disposition: HOME Prescriptions: Omeprazole CAP* [Prilosec CAP* 20 MG] 20 mg PO DAILY #14 Patient Education Materials: Abdominal Pain (ED), Biliary Colic (ED) Referrals: Myrna Jolley MD [Primary Care Provider] - 2 Days [facility] [Outside] - 2 Days (call if you cant get into your primary care doctor) - Billing Disposition and Condition Condition: GOOD Disposition: Home - Attestation Statements Document Initiated by Scribe: Yes Documenting Scribe: Lucas Anton Provider For Whom Onel is Documenting (Include Credential): Lester Toledo MD Scribe Attestation: Lucas Ruth scribed for Lester Toledo MD on 07/24/18 at 0535. Scribe Documentation Reviewed: Yes Provider Attestation: The documentation as recorded by the Lucas dale accurately reflects the service I personally performed and the decisions made by me, Lester Toledo MD
[2018-07-24 17:06] LABS: ABS Basophils 0.1 10^3/ul (0-0.2); ABS Eosinophils 0 10^3/ul (0-0.6); ABS Lymphocytes 1.2 10^3/ul (1.0-4.8); ABS Monocytes 0.6 10^3/ul (0-0.8); ABS Neutrophils 3.8 10^3/ul (1.5-7.7); ABS Nucleated RBC 0 10^3/ul; Eosinophil % 0.9 % (0-6); Hematocrit 41 % (42-52); Hemoglobin 14.2 g/dl (14.0-18.0); Lymphocyte % 21.5 % (25-47); Mean Corpuscular HGB Conc 35 g/dl (31-36); Mean Corpuscular Hemoglobin 30 pg (27-31); Mean Corpuscular Volume 85 fL (80-94); Mean Platelet Volume 6.1 um3 (7.4-10.4); Nucleated Red Blood Cells % 0.2; Platelet Count 366 10^3/ul (150-450); Red Blood Count 4.83 10^6/ul (4.00-5.40); Red Cell Distribution Width 14 % (10.5-15); White Blood Count 5.8 10^3/ul (3.5-10.8)
[2018-07-24 17:18] LABS: EGFR Non-African American 72.8 (>60)
[2018-07-24 18:16] LABS: Urine Appearance Clear; Urine Blood Negative (Negative); Urine Color Yellow; Urine Ketones Trace (Negative); Urine Protein Negative (Negative); Urine Red Blood Cell Trace(0-2/hpf) (Absent); Urine Specific Gravity 1.005 (1.010-1.030); Urine Urobilinogen Negative (Negative); Urine White Blood Cell 1+(6-10/hpf) (Absent)
[2018-07-24] MEDS ORDERED: Iohexol 300* (CONTRAST) 10 ML SDV IV ONE (19:25)
--- NOTE | 2018-07-24 20:32 | RAD ---
EXAM: CT Abdomen and Pelvis With Intravenous Contrast CLINICAL HISTORY: 52 years old, male; Pain; Abdominal pain; Generalized; Additional info: Abd pain, treated for diverticulitis TECHNIQUE: Axial computed tomography images of the abdomen and pelvis with intravenous contrast. All CT scans at this facility use at least one of these dose optimization techniques: automated exposure control; mA and/or kV adjustment per patient size (includes targeted exams where dose is matched to clinical indication); or iterative reconstruction. Coronal and sagittal reformatted images were created and reviewed. CONTRAST: 117 mL of [id number] administered intravenously. COMPARISON: No relevant prior studies available. FINDINGS: Lung bases: Unremarkable. No mass. No consolidation. ABDOMEN: Liver: Unremarkable. No mass. Gallbladder and bile ducts: Unremarkable. No calcified stones. No ductal dilation. Pancreas: Unremarkable. No mass. No ductal dilation. Spleen: Unremarkable. No splenomegaly. Adrenals: Unremarkable. No mass. Kidneys and ureters: Unremarkable. No solid mass. No hydronephrosis. Stomach and bowel: Diverticulosis without diverticulitis or colitis. No obstruction. PELVIS: Appendix: No findings to suggest acute appendicitis. Bladder: Unremarkable. No mass. Reproductive: Unremarkable as visualized. ABDOMEN and PELVIS: Intraperitoneal space: Unremarkable. No free air. No significant fluid collection. Bones/joints: No acute fracture. No dislocation. Soft tissues: Unremarkable. Vasculature: Limited atherosclerosis. No abdominal aortic aneurysm. Lymph nodes: Unremarkable. No enlarged lymph nodes. Other findings: No other acute disease seen. As above. IMPRESSION: 1. Diverticulosis without diverticulitis or colitis. 2. No other acute disease seen. As above. To contact [facility] with a general question: [facility] - [phone] For direct physician to physician contact: Physician Hotline - [phone] [facility] ([facility] Facility ID #[id number])
--- NOTE | 2018-07-24 22:34 | ED ---
Progress - Progress Note Progress Note: 22:00- Received pt sign out from Dr Paris Batista MD due to pending US results Gallbladder US Results IMPRESSION 1. 3 mm gallbladder polyp without stones or sonographic evidence for cholecystitis. 2. Fatty appearing liver. The ED physician reviewed this radiology report. Re-Evaluation - Re-Evaluation First Eval Re-Evaluation Time: 21:00 Change: Improved - ABD SOFT NONTENDER Second Eval Re-Evaluation Time: 22:30 Change: Improved - ABD SOFT NONTENDER NO PAIN Course/Dx - Diagnoses Provider Diagnoses: Abdominal pain, Gallbladder polyp Discharge - Sign-Out/Discharge Documenting (check all that apply): Patient Departure - DC Receiving patient FROM: Lester Toledo - 22:00 - Discharge Plan Condition: Good Disposition: HOME Prescriptions: Omeprazole CAP* [Prilosec CAP* 20 MG] 20 mg PO DAILY #14 cap.dr Patient Education Materials: Biliary Colic (ED), Abdominal Pain (ED) Referrals: [facility] [Outside] - 2 Days (call if you cant get into your primary care doctor) Myrna Jolley MD [Primary Care Provider] - 2 Days Additional Instructions: RETURN TO THE EMERGENCY DEPARTMENT FOR CHANGING OR WORSENING SYMPTOMS. FOLLOW UP WITH PCP IN 1-2 DAYS. - Attestation Statements Document Initiated by Scribe: Yes Documenting Scribe: Alyson May Provider For Whom Scribe is Documenting (Include Credential): Dr. Maxine Beltre MD Scribe Attestation: Alyson Ruth, scribed for Dr. Maxine Beltre MD on 07/25/18 at 0615.
[2018-07-24 23:05] VITALS: BP 169/89
--- NOTE | 2018-07-24 23:24 | RAD ---
EXAM: US Abdomen Limited, Right Upper Quadrant CLINICAL HISTORY: 52 years old, male; Pain; Abdominal pain; Epigastric; Patient HX: Ruq pain x1wk. Elevated lfts; Additional info: Elev lfts, fever TECHNIQUE: Real-time ultrasound of the right upper quadrant with image documentation. COMPARISON: A/P W CT ABD/PEL W 07/24/2018 7:33 PM FINDINGS: Liver: Fatty appearing liver. No intrahepatic bile duct dilation. Gallbladder: 3 mm gallbladder polyp without stones or sonographic evidence for cholecystitis. Common bile duct: Unremarkable as visualized. No stones. No dilation. Pancreas: Unremarkable as visualized. Right kidney: Unremarkable. No stones. No solid mass. No hydronephrosis. IMPRESSION: 1. 3 mm gallbladder polyp without stones or sonographic evidence for cholecystitis. 2. Fatty appearing liver. To contact [facility] with a general question: Operations Center - [phone] For direct physician to physician contact: Physician Hotline - [phone] [facility] ([facility] Facility ID #[id number])
== END 2018-07-24 23:02 | disposition home or self-care (01) ==
LOC: ED 14:32
DX: K82.4 Cholesterolosis of gallbladder (principal); R10.9 Unspecified abdominal pain
CPT/HCPCS: 36415; 74177; 76705; 80053; 81003; 81015; 83605; 83690; 85025; 86140; 87086; 99282; Q9967

== ENCOUNTER 2018-12-31 15:00 | Emergency (ER) | payer OTHER ==
[2018-12-31 15:11] VITALS: BP 145/96
[2018-12-31] MEDS ORDERED: HYDROcodone/ACETAMIN 5-325 MG* 1 TAB PO ONE ×2 (16:18→18:43)
[2018-12-31] MEDS ORDERED: Tetan/Diph/Pertus SYR(Tdap)* 0.5 ML SYR(BOOSTRIX) use SYR IM ONE (16:22)
[2018-12-31] MEDS ORDERED: Lidocaine 1%* 5 ML VIAL INJ ONE (16:57)
[2018-12-31] MEDS ORDERED: Lidocaine 1%* 5 ML VIAL ONE (17:02)
--- NOTE | 2018-12-31 17:43 | UC ---
Hand/Wrist HPI - HPI Summary HPI Summary: Just prior to arrival patient was at work working on a garage door when a metal bar sprung back and crushed his left fifth finger against the wall. Patient arrives with a large irregular laceration to distal left fifth finger and deformity. Last tetanus over 5 years ago. - History Of Current Complaint Chief Complaint: UCLaceration Stated Complaint: FINGER INJURY Time Seen by Provider: 12/31/18 16:17 Hx Obtained From: Patient, Family/Leather Cartridge Belt Maker - Onset/Duration: Sudden Onset, Lasting Minutes, Still Present Severity Initially: Moderate Severity Currently: Moderate Pain Intensity: 5 Pain Scale Used: 0-10 Numeric Character Of Pain: Dull Aggravating Factor(s): Movement Alleviating Factor(s): Nothing Associated Signs And Symptoms: Positive: Swelling, Bruising, Other - LACERATION Related History: Dominant Hand Right - Allergies/Home Medications Allergies/Adverse Reactions: Allergies Allergy/AdvReac Type Severity Reaction Status Date / Time No Known Allergies Allergy Verified 12/31/18 15:08 PMH/Surg Hx/FS Hx/Imm Hx Previously Healthy: Yes - Surgical History Surgical History: Yes Surgery Procedure, Year, and Place: appendectomy 2011 - Family History Known Family History: Positive: Hypertension, Other - no GI - Social History Alcohol Use: Weekly Alcohol Amount: 2 drinks per week Substance Use Type: None Smoking Status (MU): Never Smoked Tobacco - Immunization History Most Recent Influenza Vaccination: never had Most Recent Tetanus Shot: UTD Most Recent Pneumonia Vaccination: never had Review of Systems All Other Systems Reviewed And Are Negative: Yes Constitutional: Positive: Negative Skin: Positive: Bruising, Other - LACERATION Respiratory: Positive: Negative Cardiovascular: Positive: Negative Gastrointestinal: Positive: Negative Musculoskeletal: Positive: Decreased ROM, Edema Physical Exam Triage Information Reviewed: Yes Appearance: Well-Appearing, Well-Nourished, Pain Distress - MODERATE Vital Signs: Initial Vital Signs Temp 98.0 F 12/31/18 15:05 Pulse 72 12/31/18 15:05 Resp 18 12/31/18 15:05 BP 145/96 12/31/18 15:05 Pulse Ox 97 12/31/18 15:05 Vital Signs Reviewed: Yes Eyes: Positive: Conjunctiva Clear ENT: Positive: Hearing grossly normal Neck: Positive: Supple Respiratory: Positive: No respiratory distress, No accessory muscle use Cardiovascular: Positive: Pulses Normal Abdomen Description: Positive: Soft Musculoskeletal: Positive: ROM Limited @ - LEFT 5TH FINGER, Edema @ - DISTAL LEFT 5TH FINGER, Other: - LARGE IRREGULAR LACERATION DISTAL LEFT 5TH FINGER. DEFORMITY. TTP Neurological: Positive: Alert Psychological: Positive: Age Appropriate Behavior Skin: Positive: Other - LACERATION DISTAL LEFT 5TH FINGER Procedures - Laceration/Wound Repair 1 Location: upper extremity - DISTAL LEFT 5TH FINGER Description: Irregular Anesthesia: Digital, 1.0% Length, Depth and Shape: 3.5CM LONG, 5MM DEEP, IRREGULAR Betadine Prep?: No Laceration/Wound Explored: clean Closure: Single Layer - 8 SIMPLE INTERRUPTED Debridement: minimal Suture Type: Prolene - 4-0 Layer Closure?: No Sterile Dressing Applied?: Yes Diagnostics - Radiology LEFT 5TH FINGER XRAY Radiology Interpretation Completed By: Radiologist Summary of Radiographic Findings: 1. DISPLACED OPEN FRACTURE OF THE DISTAL PHALANX. 2. EXTENSIVE SOFT TISSUE INJURY. Hand/Wrist Course/Dx - Course Course Of Treatment: SPOKE WITH DR. SMYTH (ORTHO) AND MADE AWARE OF PT. AGREE WITH ABX, WOUND CLOSURE AND OFFICE FOLLOW-UP THIS WEEK. TDAP BOOSTED. - Differential Dx/Diagnosis Provider Diagnosis: Open fracture of finger of left hand Discharge - Sign-Out/Discharge Documenting (check all that apply): Patient Departure All imaging exams completed and their final reports reviewed: Yes - Discharge Plan Condition: Stable Disposition: HOME Prescriptions: Cephalexin CAP* [Keflex 500 CAP*] 1,000 mg PO BID #28 cap HYDROcodone/ACETAMIN 5-325 MG* [[place] 5-325 TAB*] 1 tab PO Q6H PRN #20 tab MDD 4 PRN Reason: Pain Patient Education Materials: Laceration (ED), Finger Fracture (ED) Forms: *Work Release Referrals: Diego Smyth MD [Medical Doctor] - Myrna Jolley MD [Primary Care Provider] - If Needed Additional Instructions: XRAY OF LEFT 5TH FINGER SHOWED A DISPLACED OPEN FRACTURE OF THE DISTAL PHALANX AND EXTENSIVE SOFT TISSUE INJURY. KEEP DRESSINGS IN PLACE AND DRY FOR THE FIRST 24 HRS. THEN YOU MAY REMOVE THE DRESSING AND GENTLY CLEANSE WITH SOAP AND WATER. PAT DRY AND RE-BANDAGE. APPLY THIN LAYER ANTIBIOTIC OINTMENT UNDER BANDAGE FOR FIRST 3-4 DAYS ONLY. CHANGE BANDAGE DAILY AND NEEDED IF IT BECOMES SOILED OR WET. SEEK FOLLOW-UP IF YOU DEVELOP SPREADING REDNESS OF THE SKIN, PURULENT DRAINAGE, FEVER, INCREASED PAIN OR ANY OTHER CONCERNING SYMPTOMS. RETURN TO HAVE YOUR 8 SUTURES REMOVED IN 10 DAYS OR OTHERWISE ADVISED BY ORTHOPEDICS. CALL ORTHOPEDICS FIRST THING TOMORROW MORNING TO SCHEDULE A FOLLOW-UP APPT THIS WEEK. YOU RECEIVED AN INJECTION OF ROCEPHIN 1G TODAY. START ORAL ANTIBIOTICS TOMORROW MORNING. TAKE FOR FULL COURSE TO HELP PREVENT INFECTION. TETANUS IMMUNIZATION GIVEN (TDAP): You have been given an immunization against tetanus. Please record this in your records. In general, a booster is needed only once every 10 years. The tetanus shot protects against tetanus or "lockjaw," which is a complication of certain wound infections (the tetanus shot cannot protect against the actual infection). The immunization site may become warm and red due to local reaction. If this occurs, apply warm compresses and take aspirin or ibuprofen to reduce inflammation and discomfort. Return for evaluation if the reaction becomes severe. - Billing Disposition and Condition Condition: STABLE Disposition: Home
[2018-12-31] MEDS ORDERED: cefTRIAXone VIAL(*) 1,000 MG VIAL IM ONE (18:23)
== END 2018-12-31 18:58 | disposition home or self-care (01) ==
LOC: UCEAST 15:00
DX: S62.637B Displaced fracture of distal phalanx of left little finger, initial encounter for open fracture (principal); S61.217A Laceration without foreign body of left little finger without damage to nail, initial encounter; W22.01XA Walked into wall, initial encounter; Y92.9 Unspecified place or not applicable
CPT/HCPCS: 12002; 73140; 90471; 90715; 96372; 99212; G0463; J0696